=== PATIENT | female | born 1985 | race Caucasian/White ===

== ENCOUNTER 2017-08-30 09:51 | Emergency (ER) | payer SELFPAY ==
[~2017-08-30] VITALS: Ht 170.2 cm; Wt 55.3 kg
[2017-08-30 10:23] LABS: BASOPHILS % (AUTO) 0.3 % (0.0-2.0); EOSINOPHILS % (AUTO) 0.2 % (0.0-6.0); HEMATOCRIT 36 % (33-45); HEMOGLOBIN 11.8 g/dL (11.5-14.8); LYMPHOCYTES # (AUTO) 1.8 /CMM (0.8-4.8); MEAN CORPUSCULAR HEMOGLOBIN 28 PG (26.0-33.0); MEAN CORPUSCULAR HGB CONC 33 g/dl (31.0-36.0); MEAN CORPUSCULAR VOLUME 84 fL (82-100); MONOCYTES # (AUTO) 0.4 /CMM (0.1-1.30); MONOCYTES % (AUTO) 5.1 % (2.0-12.0); NEUTROPHILS # (AUTO) 6.6 /CMM (1.8-8.9); NEUTROPHILS % (AUTO) 73.4 % (43.0-81.0); PLATELET COUNT (AUTO) 256 /CMM (150-450); RDW COEFFICIENT OF VARIATION 12.1 (11.5-15.0); RED BLOOD CELL COUNT(AUTO) 4.25 MIL/uL (4.0-5.2); WHITE BLOOD COUNT (AUTO) 8.8 K/uL (4.3-11.0)
--- NOTE | 2017-08-30 10:25 | NUR ---
URINE SENT TO LAB
--- NOTE | 2017-08-30 11:18 | NUR ---
PER LAB BLOOD TYPE O+
--- NOTE | 2017-08-30 11:31 | NUR ---
PT. VERBALIZED UNDERSTANDING OF AFTERCARE INSTRUCTIONS.Patient discharged to home in stable condition. Written and verbal after care instructions given. Patient verbalizes understanding of instruction.
[2017-08-30 11:32] VITALS: BP 113/79
== END 2017-08-30 12:33 | disposition home or self-care (01) ==
LOC: ER 10:06
DX: O20.9 Hemorrhage in early pregnancy, unspecified (principal); Z3A.09 9 weeks gestation of pregnancy; Z88.0 Allergy status to penicillin
CPT/HCPCS: 36415; 76856; 84702; 85025; 99285; A4606; Z7610